=== PATIENT | female | born 1960 | race Caucasian/White ===

== ENCOUNTER 2018-03-21 11:42 | Outpatient (CLI) | payer BC | END 2018-03-21 11:43 | disposition home or self-care (01) | LOC: BICMAMMO 11:42 | PROVIDERS: ATTEND Family Medicine | DX: Z12.31 Encounter for screening mammogram for malignant neoplasm of breast (principal); Z80.3 Family history of malignant neoplasm of breast | CPT/HCPCS: 77063; 77067 ==

== ENCOUNTER 2021-05-14 08:33 | Outpatient (CLI) | payer BC | END 2021-05-14 08:34 | disposition home or self-care (01) | LOC: BICMAMMO 08:33 | PROVIDERS: ATTEND Family Medicine | DX: Z12.31 Encounter for screening mammogram for malignant neoplasm of breast (principal); Z80.3 Family history of malignant neoplasm of breast | CPT/HCPCS: 77063; 77067 ==

== ENCOUNTER 2025-07-24 10:14 | Outpatient (CLI) | payer BC | END 2025-07-24 10:15 | disposition home or self-care (01) | LOC: BICRAD 10:14 | PROVIDERS: ATTEND Family Medicine | DX: M25.552 Pain in left hip (principal); M47.816 Spondylosis without myelopathy or radiculopathy, lumbar region; M41.9 Scoliosis, unspecified; M51.369 Other intervertebral disc degeneration, lumbar region without mention of lumbar back pain or lower extremity pain | CPT/HCPCS: 72100 ==